=== PATIENT | male | born 1950 | race Caucasian/White ===

== ENCOUNTER 2023-05-15 12:02 | Day surgery (SDC) | payer MEDICARE ==
[2023-05-15] VITALS (12 sets, daily range): BP systolic 101–178; BP diastolic 58–96; PULSE 52–65; RESP 11–25; TEMP 98.3; O2SAT 93–99
[~2023-05-15] VITALS: Ht 210.8 cm; Wt 85.3 kg
[2023-05-15] MEDS ORDERED: LORazepam 0.5 MG tablet PO PRN (12:30)
[2023-05-15] MEDS ORDERED: normal saline 1,000 ML IV SCH (12:30)
[2023-05-15] MEDS ORDERED: diphenhydrAMINE 25mg capsule PO PRN (12:30)
[2023-05-15 12:52] LABS: BASOPHILS % (AUTO) 0.7 % (0-1); EOSINOPHILS # (AUTO) 0.1 X10'3 (0-0.9); EOSINOPHILS % (AUTO) 1.6 % (0-6); HEMATOCRIT 36.5 % (42.0-52.0); HEMOGLOBIN 12.2 g/dl (14.0-17.9); LYMPHOCYTES # (AUTO) 1.9 X10'3 (1.1-4.8); LYMPHOCYTES % (AUTO) 29.8 % (21-51); MEAN CORPUSCULAR HEMOGLOBIN 29.3 PG (27.0-31.0); MEAN CORPUSCULAR HGB CONC 33.3 g/dL (33.0-36.5); MEAN PLATELET VOLUME 6.7 FL (7.4-10.4); MONOCYTES # (AUTO) 0.6 X10'3 (0-0.9); MONOCYTES % (AUTO) 9.1 % (2-12); NEUTROPHILS # (AUTO) 3.7 X10'3 (1.8-7.7); NEUTROPHILS % (AUTO) 58.8 % (42-75); PLATELET COUNT 192 X10'3 (140-440); RED BLOOD COUNT 4.15 X10'6 (4.70-6.10); RED CELL DISTRIBUTION WIDTH 15.5 % (11.5-14.5); WHITE BLOOD COUNT 6.3 X10'3 (4.5-11.0)
[2023-05-15 13:04] LABS: ALBUMIN 3.7 G/DL (3.4-5.0); ANION GAP 7 (8-16); BLOOD UREA NITROGEN 13 MG/DL (7-18); BUN/CREATININE RATIO 13.5 (10.0-20.0); CHLORIDE 103 MMOL/L (99-107); CREATININE 0.96 MG/DL (0.60-1.10); GLUCOSE 91 MG/DL (70-104); POTASSIUM 3.9 MMOL/L (3.5-5.1); SODIUM 139 MMOL/L (135-145); TOTAL CARBON DIOXIDE 28.6 MMOL/L (24-32); eGFR 77 ML/MIN
[2023-05-15 13:08] LABS: CHOL/HDL RATIO 2.7 (0.00-4.99); CHOLESTEROL 202 MG/DL (0-200); HDL CHOLESTEROL 76 MG/DL (35-60); LDL CHOLESTEROL 101 MG/DL (50-100); TRIGLYCERIDES 119 MG/DL (20-135)
[2023-05-15] MEDS ORDERED: PRAV40TA3 PO (13:16)
[2023-05-15] MEDS ORDERED: MULT-1085 PO (13:16)
[2023-05-15] MEDS ORDERED: LISI20TA28 PO (13:16)
[2023-05-15] MEDS ORDERED: OMEG-166 PO (13:16)
[2023-05-15] MEDS ORDERED: TIMO5DRO45 LEFTEYE (13:16)
[2023-05-15] MEDS ORDERED: verapamil 2.5 mg/ml inj IV ONE (13:16)
[2023-05-15] MEDS ORDERED: ASPI-611 PO (13:16)
[2023-05-15] MEDS ORDERED: CLON0.1T2 PO (13:16)
[2023-05-15] MEDS ORDERED: LIDOcaine 1% (10mg/ml) 2ml vial ONE (13:16)
[2023-05-15] MEDS ORDERED: fentaNYL/PF 50MCG/1 ML 2ML syringe ONE (13:17)
[2023-05-15] MEDS ORDERED: heparin 1,000unit/ml 10ml vial 10 ML ONE (13:17)
[2023-05-15] MEDS ORDERED: iohexol 350MG/ML 100ml bottle IV ONE ×2 (13:17→14:16)
[2023-05-15] MEDS ORDERED: nitroGLYCERIN 500mcg/5mL D5W 5 ML IV ONE (13:17)
[2023-05-15] MEDS ORDERED: midazolam 1 mg/ML 2ml injection ONE (13:17)
[2023-05-15 13:44] LABS: APTT 29 SECONDS (22-32); PROTHROMBIN TIME 10.8 SECONDS (9.0-12.0)
[2023-05-15] MEDS ORDERED: iohexol 350 MG/ML 50ML vial IV ONE (14:04)
[2023-05-15] MEDS ORDERED: HYDROcodone/acetaminophen 10/325mg tab PO PRN (15:00)
[2023-05-15] MEDS ORDERED: HYDROcodone/acetaminophen 5mg/325mg tablet PO PRN (15:00)
== END 2023-05-15 18:21 | disposition home or self-care (01) ==
LOC: SSTAY O 12:02
PROVIDERS: ATTEND Student in an Organized Health Care Education/Training Program
DX: R94.39 Abnormal result of other cardiovascular function study (principal); I25.10 Atherosclerotic heart disease of native coronary artery without angina pectoris; I25.82 Chronic total occlusion of coronary artery; I10 Essential (primary) hypertension; E78.5 Hyperlipidemia, unspecified; Z79.899 Other long term (current) drug therapy; Z79.01 Long term (current) use of anticoagulants
CPT/HCPCS: 36415; 80048; 80061; 85025; 85610; 85730; 93005; 93458; 93571; 99152; 99153; J1644; J2250; J3010; J3490; J7030; Q0163; Q9967; A6258; A6402; A6449; C1751; C1769; C1894

== ENCOUNTER 2025-05-13 11:03 | Emergency (ER) | payer MEDICARE ==
[~2025-05-13] VITALS: Ht 185.4 cm; Wt 94.1 kg
[~2025-05-13 11:03] MED LIST: ASPI81TA53 PO; IRON-32 PO; LOP12.5T PO; MULT-1085 PO; OMEG-166 PO; PRAV40TA17 PO
[2025-05-13 11:12] VITALS: BP 150/78; PULSE 62; RESP 15; O2SAT 100
--- NOTE | 2025-05-13 12:03 | Physician Documentation ---
History of Present Illness Chief Complaint: See Chief Complaint Stated Complaint: INSECT BITE Time Seen by MD: 11:54 HPI Patient is a very pleasant 74-year-old male that presents to the emergency department for evaluation of a small bite to his lower left anterior leg. Patient reports that he may or may not have seen a tick on him a couple of weeks ago flicked a bug off of him now has a an area that he is concerned about. Bite does not appear to be indurated there is no obvious area of bull's-eye no fevers chills nausea vomiting diarrhea patient reports he has had some intermittent neck stiffness although does not endorse neck stiffness at this time. Patient has requested that we do Lyme disease serology here in the emergency department. Explained to the patient that that needs to be done on an outpatient basis. Patient would like to have doxycycline prescribed here discussed with the patient that he would need to have serology done and then discussed the doxycycline with his primary care provider at that time.. We do not empirically treat on known tick exposure with doxycycline at this time. Forty to the patient that he can follow up with us if he has additional symptoms or any other concerns that we will be happy to assess him at that time and discuss treatment. Medication Reconciliation Allergies: Coded Allergies: No Known Allergies (Unverified , 12/31/10) Scheduled Aspirin (Children's Aspirin), 81 MG PO Q24H@0830 Iron Ag,Ps/C/Fa6/B12/Zn/SA/Sto (Niferex Tablet), 1 TAB PO DAILY Metoprolol Tartrate (Lopressor tablet), 12.5 MG PO Q12H Multivitamin (Multi Vitamin Daily), 1 TAB PO DAILY, (Reported) [place]-3/Dha/Epa/Fish Oil (Fish Oil 1,000 Mg Ec Softgel), 1 CAP PO DAILY, (Reported) Pravastatin Sodium (Pravastatin Sodium), 1 TAB PO DAILY, (Reported) Review of Systems ROS As stated above in the HPI, otherwise all systems are reviewed and negative. Physical Exam Vital Signs: Temperature: 97.5, Source: Oral, Heart Rate: 62, Respiratory Rate: 15, BP: 150/78, Pulse Oximetry: 100, Weight: 94.100 Physical Exam VITALS: Reviewed and as above. GENERAL: Alert, no apparent distress. HEENT: Normocephalic, atraumatic, PERRL, EOMI, dry mucosa, no erythema RESPIRATORY: normal breath sounds, no respiratory distress. CHEST: No accessory muscle use, no retractions GI: Soft, non-tender, bowels sounds present, no rebound, guarding, or rigidity MUSCULOSKELETAL No deformities, no edema SKIN: Warm and dry, no rash NEURO: Oriented x4, No motor or sensory deficit PSYCH: Normal mood and affect, no agitation Progress Results/Orders Results/Orders Vital Signs 05/13/25 11:12 Temp 97.5 Pulse 62 Resp 15 B/P (MAP) 150/78 Pulse Ox 100 Medical Decision Making Additional information obtaine: other Findings Chief Concern: Possible tick exposure approximately 2 weeks ago with transient neck stiffness. History of Present Illness: 74-year-old male presents reporting possible tick exposure approximately 2 weeks prior to presentation. Patient uncertain whether he actually saw a tick. Today experienced neck stiffness in the morning that spontaneously resolved by afternoon. No erythema migrans rash, fever, neurologic symptoms, or other systemic symptoms. Patient requested empiric doxycycline for Lyme disease prophylaxis. Medical Decision-Making: Assessment and Plan: Possible tick exposure with transient neck stiffness, resolved. The patient does not meet criteria for antibiotic prophylaxis. Per Infect[employer] of [place], [place] [employer], and [place] [employer] guidelines, prophylactic antibiotics are indicated only for high-risk tick bites meeting all of the following criteria: (1) identified Ixodes species tick, (2) highly endemic area, (3) tick attached ?36 hours, and (4) removal within 72 hours. This patient cannot confirm tick species or attachment duration, and the exposure occurred approximately 2 weeks ago, well beyond the 72-hour window for prophylaxis. [1] Empiric treatment for Lyme disease is not indicated at this time. The patient bowman s no clinical manifestations of early Lyme disease (no erythema migrans rash) or other tick-borne illness. The transient neck stiffness that resolved spontaneously is not consistent with Lyme neuroborreliosis. [1] Serologic testing for Lyme disease was ordered to address patient concerns, with results expected in several days. Patient counseled that regardless of serologic results, he should monitor for symptoms of tick-borne illness over the next 30 days, including expanding erythematous rash, fever, new neurologic symptoms, or other unexplained illness. [1] Disposition: Discharge home with primary care follow-up for serologic test results and clinical reassessment. Patient instructed to return to the emergency department if symptoms worsen or new concerning symptoms develop, particularly expanding rash, fever, severe headache, facial weakness, or cardiac symptoms. Differential Dx:Considerations: Other Departure Disposition: 01 HOME / SELF CARE / HOMELESS Impression: Primary Impression: Worried well Condition: Stable Additional Instructions: Reason for Visit: You came to the emergency department today because you may have had a tick bite about 2 weeks ago and experienced neck stiffness this morning that has since resolved. What We Found: Your examination today was normal, and your neck stiffness has resolved. You do not currently have signs of Lyme disease or other tick-borne illness. Follow-Up Testing with Your Primary Care Provider Please schedule an appointment with your primary care provider within the next week to discuss Lyme disease blood testing (serology). The recommended test is called "two-tier testing," which involves: [1-2] First test: An enzyme immunoassay (EIA or DEBBIE) to screen for antibodies Second test: If the first test is positive or unclear, a confirmatory test (Western blot or second EIA) will be performed Important Information About Test Results: If your test results are NEGATIVE: A negative test likely means you do not have Lyme disease [1-2] However, if you develop new symptoms (see warning signs below), you may need repeat testing in 2-4 weeks, as antibodies can take time to develop [4-5] No antibiotic treatment is needed if tests are negative and you have no symptoms [1] If your test results are POSITIVE: Your primary care provider will determine if treatment is needed based on your symptoms and test results [1] If you have symptoms of Lyme disease, treatment typically involves antibiotics such as: [3] Doxycycline 100 mg twice daily for 10-21 days, OR Amoxicillin 500 mg three times daily for 14-21 days, OR Cefuroxime 500 mg twice daily for 14-21 days If you have no symptoms, a positive test may indicate past infection rather than active disease, and your provider will discuss whether treatment is appropriate [1] Watch for Warning Signs Return to the emergency department immediately or call 911 if you develop any of the following: [1] Expanding red rash anywhere on your body (may look like a bull's-eye or solid red patch) Fever (temperature above 100.4F) Severe headache with stiff neck, confusion, or sensitivity to light Facial weakness or drooping on one or both sides Chest pain, shortness of breath, or irregular heartbeat Joint swelling or severe joint pain Numbness, tingling, or weakness in arms or legs Other Symptoms to Report to Your Primary Care Provider Contact your primary care provider if you develop: [1] Mild headache or body aches Fatigue or feeling generally unwell Muscle or joint aches Any new or unusual symptoms in the next 30 days Prevention Tips To reduce your risk of future tick bites: Wear long sleeves and pants when in wooded or grassy areas Use insect repellent containing DEET Check your entire body for ticks after outdoor activities Remove ticks promptly with fine-tipped tweezers by grasping close to the skin Follow-Up Appointments Primary care provider: Schedule within 1 week to discuss blood testing Bring these discharge instructions to your appointment Questions? If you have questions about these instructions or your care, contact your primary care provider's office. Referrals: NO PRIMARY CARE PROVIDER (PCP) Education Educated: Patient Educated regarding: diagnosis, treatment, need for follow up Signature Scribe Signature: A Attestation: Scribed for Bibi Cueto by DAX Garay . 05/13/25 12:07 BIBI CUETO May 13, 2025 12:03
[2025-05-13 12:17] VITALS: TEMP 97.5
== END 2025-05-13 12:19 | disposition home or self-care (01) ==
LOC: ER 11:04
DX: S80.862A Insect bite (nonvenomous), left lower leg, initial encounter (principal); Z79.82 Long term (current) use of aspirin; Z79.899 Other long term (current) drug therapy; W57.XXXA Bitten or stung by nonvenomous insect and other nonvenomous arthropods, initial encounter; Y93.89 Activity, other specified; Y92.89 Other specified places as the place of occurrence of the external cause; Y99.8 Other external cause status
CPT/HCPCS: 99282